=== PATIENT | female | born 1955 | race Caucasian/White ===

== ENCOUNTER 2016-05-19 19:38 | Inpatient (IN) | payer OTHER ==
[~2016-05-19] VITALS: Ht 162.6 cm; Wt 53.9 kg
[~2016-05-19 19:38] MED LIST: ALPR0.2552 PO; CALC-731 PO; CITA40TA PO; DULO60CA42 PO; EST05TD TOP; HYDR10TA12 PO; LANS30CA8 PO; LEVO50TA83 PO; ONDAN8ODT BU; VICODIN PO; [UNRECOGNIZED DRUG - CODE] PO; [UNRECOGNIZED DRUG - OTHER] INJ
[2016-05-19 19:51] VITALS: BP 91/55; PULSE 153; RESP 20; O2SAT 100
[2016-05-19] MEDS ORDERED: 0.9% Sodium Chloride 1,000 ML IV ONE ×2 (19:56→20:00)
--- NOTE | 2016-05-19 19:56 | ED.REPORT ---
HPI-Abd Pain F 40 and Over Date of Service May 19, 2016 ED Provider: Beny Thomas MD Pt is a 61 y.o. female with [place]'s disease who presents to the ED c/o rectal bleeding onset this morning. Pt also reports associated dizziness, nausea, hematemesis, hematochezia, and decreased PO intake. She states that she has been unable to keep her medications down. She reports having a colonoscopy 2 years ago. Nursing Notes Stated Complaint: BLOOD IN STOOL,VOMITING,DEHYDRATED Chief Complaint: Female Abdominal Pain Nursing Notes Reviewed: Yes Allergies: Coded Allergies: Penicillins (Verified Allergy, Unknown, 05/19/16) Sulfa (Sulfonamide Antibiotics) (Verified Allergy, Unknown, 05/19/16) pseudoephedrine (Verified Allergy, Unknown, 05/19/16) sulfamethoxazole (Verified Allergy, Unknown, 05/19/16) tramadol (Verified Allergy, Unknown, 05/19/16) trimethoprim (Verified Allergy, Unknown, 05/19/16) Uncoded Allergies: BACTRIM DS (Allergy, Mild, nausea, 02/01/13) SUDEFED (Allergy, Mild, nausea, 02/01/13) SULFA (Allergy, Mild, nausea, 02/01/13) Scheduled ([R-12 injection]) 1 ML INJ q 2 weeks Calcium Carb/Vit D3/Minerals (Calcium 600+D & Mineral Chw Tb) 1 Each Tab.chew 1 EACH PO QID Cholecalciferol-Expunged Drug, Do Not Renew! (Vitamin D3-Expunged Drug, Do Not Renew!) 10,000 Unit Capsule 5,000 UNIT PO DAILY Citalopram-Expunged Drug, Do Not Renew! (Citalopram-Expunged Drug, Do Not Renew! ) 40 Mg Tablet 40 MG PO DAILY Duloxetine-Expunged Drug, Do Not Renew! (Cymbalta-Expunged Drug, Do Not Renew!) 60 Mg Capsule.dr 60 MG PO DAILY Estradiol-Expunged Drug, Do Not Renew! (Climara-Expunged Drug, Do Not Renew!) 0.05 Mg Patch 1 PATCH TOP QW ROTATE APPLICATION SITES Estrogen replacement therapy 3 weeks ON 1 week OFF Hydrocortisone-Expunged Drug, Do Not Renew! (Hydrocortisone-Expunged Drug, Do Not Renew!) 10 Mg Tablet 20 MG PO AM Hydrocortisone-Expunged Drug, Do Not Renew! (Hydrocortisone-Expunged Drug, Do Not Renew!) 10 Mg Tablet 10 MG PO HS Lansoprazole-Expunged Drug, Do Not Renew! (Lansoprazole-Expunged Drug, Do Not Renew!) 30 Mg Capsule.dr 60 MG PO DAILYAC Levothyroxine-Expunged Drug, Do Not Renew! (Synthroid-Expunged Drug, Do Not Renew!) 50 Mcg Tablet 25 MCG PO DAILY Scheduled PRN ([Vicodin 5-500MG Tab]) 1 TAB PO Q8 PRN PRN Alprazolam-Expunged Drug, Do Not Renew! (Alprazolam-Expunged Drug, Do Not Renew! ) 0.25 Mg Tablet 0.25 MG PO DAILY PRN PRN For Anxiety Ondansetron (Ondansetron) 8 Mg Tab.rapdis 8 MG BU Q8 PRN PRN DISSOLVE IN MOUTH OR UNDER TONGUE General Time Seen by MD: 19:54 Chief Complaint Rectal bleeding Hx Obtained From: Patient Arrived By: Walk-in Sudden in Onset?: Yes Onset Occurred: 9 - 12 hours ago Symptom Duration: Since onset Past Medical History Past Medical History Sergio's disease Mitral valve prolapse Osteoporosis Restless leg syndrome Insomnia Reports: GERD, Hyperlipidemia Smoking History Never Smoker Ambulatory Status Independent Review of Systems Rectal bleeding Decreased PO intake GI: Reports: Diarrhea, Hematemesis, Hematochezia, Nausea, Vomiting, Denies: Constipation Complete sys rev & neg: except as marked. Neurologic: Reports: Dizziness Physical Exam Vital Signs Vital Signs (First) Date Time Temp Pulse Resp B/P Pulse Ox O2 Delivery O2 Flow Rate FiO2 05/19/16 19:51 36.8 153 20 91/55 100 Room Air Initial VS: Reviewed Head / Eyes: Atraumatic, Normocephalic Extremities: Vascular intact, Neuro intact Skin: Warm, Dry, No cyanosis Neurologic: Alert, Oriented, Nonfocal Psychiatric: Mood/affect normal, Behavior normal, Normal thought content General/Constitutional: Awake, Alert Appearance / Presentation: Positive: Pale Respiratory / Chest: Atraumatic, Breath sounds NL, Breath sounds = bilat, No respiratory distress, No rales, No rhonchi, No wheezing, No retractions, No stridor Cardiovascular: Heart sounds NL, No gallop, No murmurs, No rubs, Peripheral circulation NL Heart Rate / Rhythm: Positive: Tachycardia Abdomen: Atraumatic, Soft, Non-tender, No guarding, No rebound, No distention Back: Atraumatic Interpretation & Diagnostics Lab Results Interpretation Result Diagram: 05/19/16195405/19/161954 Test 05/19/16 19:55 05/19/16 22:08 05/19/16 23:14 White Blood Count 16.9th/mm3 (3.8-10.1) Red Blood Count 5.91mil/mm3 (3.90-5.20) Hemoglobin 16.7g/dL (12.0-15.6) Hematocrit 48.7% (35.0-46.0) Mean Corpuscular Volume 82.4fL (81-100) Mean Corpuscular Hemoglobin 28.3pg (27.0-35.0) Mean Corpuscular Hemoglobin Concent 34.3% (32.0-37.0) Red Cell Distribution Width 13.2% (12.3-15.4) Platelet Count 425bil/L (150-400) Neutrophils (%) (Auto) 63.1% (40-74) Lymphocytes (%) (Auto) 22.3% (14-46) Monocytes (%) (Auto) 12.2% (4-12) Eosinophils (%) (Auto) 1.7% (0-5) Basophils (%) (Auto) 0.3% (0-3) Prothrombin Time 10.7sec (8.1-12.5) Prothromb Time International Ratio 1.00ratio Sodium Level 130mEq/L (134-144) Potassium Level 4.7mEq/L (3.5-5.2) Chloride Level 90mEq/L (97-108) Carbon Dioxide Level 20mmol/L (18-29) Blood Urea Nitrogen 23mg/dL (8-27) Creatinine 1.61mg/dL (0.57-1.00) Estimat Glomerular Filtration Rate 47mL/min (>59) Glucose Level 121mg/dL (60-99) Lactic Acid Level 3.6mmol/L (0.4-2.0) Calcium Level 10.0mg/dL (8.5-10.1) Total Bilirubin 0.7mg/dL (0.0-1.2) Aspartate Amino Transf (AST/SGOT) 29U/L (0-50) Alanine Aminotransferase (ALT/SGPT) 15U/L (0-32) Alkaline Phosphatase 67U/L (25-165) Total Protein 7.5g/dL (6.4-8.4) Albumin 4.2g/dL (3.4-5.0) Urine Color Yellow (YELLOW) Urine Appearance Clear (CLEAR,HAZY) Urine pH 5.5 (5.0-8.0) Urine Specific Bryan 1.025 (1.003-1.035) Urine Protein Negativemg/dL (NEG,TRACE) Urine Glucose (UA) Negativemg/dL (NEGATIVE) Urine Ketones Tracemg/dL (NEGATIVE) Urine Occult Blood Trace (NEGATIVE) Urine Nitrite Negative (NEGATIVE) Urine Bilirubin Small (NEGATIVE) Urine Ictotest Negative (Negative) Urine Urobilinogen Normalmg/dL (NORMAL) Urine Leukocyte Esterase Negative (NEGATIVE) Urine RBC 3-10/hpf (0-2) Urine WBC 6-10/hpf (0-5) Urine Epithelial Cells Occasional/hpf (NONE-MOD) Urine Crystals None seen (NONE SEEN) Urine Bacteria Few/hpf (NONE-FEW) Urine Hyaline Casts None/lpf (NONE) Urine Granular Casts None seen (NONE SEEN) Urine Waxy Casts None seen (NONE SEEN) Urine Red Blood Cell Casts None seen (NONE SEEN) Urine White Blood Cell Casts None seen (NONE SEEN) Urine Mucus None seen (None Seen) Urine Trichomonas None seen (NONE SEEN) Urine Yeast None (NONE SEEN) Urinalysis Comment None Urine Culture Reflexed Indicated Urinalysis Interpretation Positive blood (Trace), Positive ketones ECG Interpretation ECG Interpretation: No ST changes Time: 19:59 Interpreted by: ED physician Normal ECG Interpretation: Normal sinus rhythm Rhythm / Conduction: Tachycardia (rate of 149) X-Ray Chest Interpretation Chest Xray Interpretation: IMPRESSION: Breast implants, peripherally faintly calcified, no acute disease. Dictated by: Skip Clement M.D. on 05/19/2016 at 21:08 Approved by: Skip Clement M.D. on 05/19/2016 at 21:08 Re-Eval/Medical Decision Med Decision/Clinical Course 61-year-old female history of [place]'s disease, fibromyalgia presenting with abdominal pain, hematemesis and bloody diarrhea started today. Abdomen is soft with no tenderness. Rectal with gross blood no melena. MAPs initially in the 40s. She Did Not Take Her hydrocortisone today due to vomiting. Tachycardic to 1 teens. Lactate is 3.6. Hb 16. Acute kidney injury creatinine 1.6 baseline 1. Urine positive leukocytes. Stool cultures sent. Discussed with hospitalist who would like CT abdomen and pelvis with oral contrast which is pending. Contrast started. Patient will be admitted to [facility] with diagnosis sepsis, UTI, diarrhea, GI bleed, acute kidney injury. Patient was given Rocephin and Flagyl for GI and urinary source. Given 3 L normal saline. Given hydrocortisone 100 mg IV. Her maps were in the mid 60s at transfer. 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 We will trend hemoglobin. Source of Hx: Old records Re-Evaluation/Progress : Time of Eval: 22:53 Re-Evaluation/Progress Note: Pt rechecked. Discussed lab results and plan for admission, pt undertsands and agrees with plan. Consultation : Referral / Consult Name: Manolo Razo MD Consulted With: Hospitalist Call Returned at: 23:23 Note: Discussed pt condition, accepts admit. Would like an abdominal CT w/ oral contrast. Counseled Regarding: Diagnosis, Lab results, Need for admission Discharge & Departure Primary Impression: Sepsis Additional Impressions: UTI (urinary tract infection) Acute kidney injury Diarrhea Disposition: ADMITTED TO HOSPITAL Discharge Condition All VS Reviewed: Yes Condition: Stable Referrals: Jessica Romero MD (PCP) Beatrice Attestation Portions of this note were transcribed by Diego Blackwood. I, Dr. Thomas personally performed the history, physical exam and medical decision-making; I reviewed and confirmed the accuracy of the information in the transcribed note. Signed by: Beatrice Morse, 05/19/16 and 0464. copies to: Jessica Romero MD, Ben M MD May 19, 2016 19:56 DIEGO BLACKWOOD May 19, 2016 22:39
[2016-05-19] MEDS ORDERED: Pantoprazole Inj 80 MG, Pharmacy To Mix 1 EA in 0.9% Sodium Chloride 80 ML IV ONE ×2 (20:00)
[2016-05-19] MEDS ORDERED: Pantoprazole 4 mg/mL 10 mL Inj IVPUSH ONE (20:00)
[2016-05-19] MEDS ORDERED: Hydrocortisone 50 mg/mL 2 mL Inj IVPUSH ONE (20:00)
[2016-05-19 20:17] LABS: BASOPHILS % (AUTO) 0.3 % (0-3); EOSINOPHILS % (AUTO) 1.7 % (0-5); MONOCYTES % (AUTO) 12.2 % (4-12); Mean Corpuscular Hemoglobin 28.3 pg (27.0-35.0); Mean Corpuscular Volume 82.4 fL (81-100); NEUTROPHILS % (AUTO) 63.1 % (40-74); Platelet Count 425 bil/L (150-400)
[2016-05-19] MEDS ORDERED: Ondansetron 2 mg/mL 2 mL Inj IVPUSH PRN ×2 (20:20→23:50)
[2016-05-19 20:30] VITALS: BP 100/60; PULSE 122; RESP 20; O2SAT 98
--- NOTE | 2016-05-19 21:09 | DRSVH ---
PROCEDURE: X-RAY CHEST ONE VIEW, PORTABLE ([id number]) INDICATIONS: GI bleed TECHNIQUE: One view of the chest was acquired. COMPARISON: [facility], CR, RIBS UNILAT 2VW (RT), 08/28/2014, 15:22. FINDINGS: Surgical changes and devices: None. Lungs and pleura: No pleural effusions or pneumothorax. Lungs are clear. Mediastinum: Mediastinal contours appear normal. Heart size is normal. Bones and chest wall: No suspicious bony lesions. Overlying soft tissues appear unremarkable. IMPRESSION: Breast implants, peripherally faintly calcified, no acute disease. Dictated by: Skip Clement M.D. on 05/19/2016 at 21:08 Approved by: Skip Clement M.D. on 05/19/2016 at 21:08
[2016-05-19 21:30] VITALS: BP 88/51; PULSE 123; RESP 18; O2SAT 96
[2016-05-19 22:00] VITALS: BP 81/52; PULSE 117; RESP 18; O2SAT 97
[2016-05-19 22:17] LABS: APPEARANCE,URINE CLEAR (CLEAR,HAZY); COLOR,URINE YELLOW (YELLOW); OCCULT BLOOD,URINE TRACE (NEGATIVE); PH,URINE 5.5 (5.0-8.0); UROBILINOGEN,URINE NORMAL (NORMAL)
[2016-05-19 22:30] LABS: ICTOTEST,URINE NEGATIVE (Negative)
[2016-05-19] MEDS ORDERED: metroNIDAZOLE Inj 500 MG in IV Premix 1 EACH IV ONE (22:55)
[2016-05-19] MEDS ORDERED: cefTRIAXone Inj 2 GM in IV Premix 1 EACH IV ONE (22:55)
[2016-05-19] MEDS ORDERED: cefTRIAXone Inj 2,000 MG in Dextrose 5% Minibag Plus 50 ML IV SCH (23:05)
[2016-05-19] MEDS ORDERED: Iohexol 300 mg/mL 30 mL Inj PO ONE (23:25)
[2016-05-19] MEDS ORDERED: CEFTRIAXONE 2000 MG/50 ML IV ONE (23:30)
[2016-05-19] MEDS ORDERED: [UNRECOGNIZED DRUG - OTHER] IV ONE (23:30)
[2016-05-19] MEDS ORDERED: Alum-Mag Hydrox-Simeth 30 mL Suspension PO PRN (23:50)
[2016-05-19 23:54] VITALS: BP 86/60; PULSE 102; RESP 16; O2SAT 100
[2016-05-20] VITALS (9 sets, daily range): BP systolic 80–98; BP diastolic 40–63; PULSE 89–110; RESP 12–25; O2SAT 96–100
[2016-05-20] MEDS ORDERED: Polyethylene Glycol (PEG) 17 Gm Powder PO PRN
[2016-05-20] MEDS: 0.9% Sodium Chloride 1,000 ML IV SCH ×2 (00:41→13:51)
[2016-05-20] MEDS ORDERED: HYDROmorphone 0.5 mg/0.5 mL iSecure Syringe IVPUSH PRN (00:50)
--- NOTE | 2016-05-20 01:00 | NUR ---
Admit note and blood pressures. Patient came to the [facility] on a gurney escorted by an diesel technician. Patient was settled into bed and admission process was completed. Patient is A/Ox4 and answering all questions appropriately. Patient was placed on tele and found to be tachycardiac in the 110's. Patient was slightly hypotensive in the 90's systolic. Patient reports mild lightheadedness. Provider Royer was contact and orders to give a 500ml fluid bolus was received. Maintenance fluids running at 75ml/hr. Patient blood pressure remained in the 90's and the patient is asystematic.
--- NOTE | 2016-05-20 01:09 | PCM.HPMED ---
Subjective Date of Service May 20, 2016 Primary Provider: Admitting Physician: Maonlo Razo MD Primary Care Physician: Jessica Romero MD Attending Physician: Manolo Razo MD Chief Complaint: Abdominal pain, bloody diarrhea History of Present Illness: Patient is a 61 year old female with a history of [place]'s disease, fibromyalgia, GERD and colon polyps. She presented to [facility] on 05/19/16 with "horrible" abdominal pain. It had been ongoing since 0300. She awakened at that time and went to use the restroom. She initially passed hard stool and then bloody diarrhea followed. She reports bright red blood and that continued much of the day (last BM 1600). Later in the morning she also developed dry heaves and vomiting. The emesis did contain blood in the afternoon with her last episode occurring in the ED waiting room. Currently her nausea has resolved but her abdominal pain remains. She denies fever but did have chills. She has not been feeling unwell the past few days and denies cough, nasal congestion, sore throat. She denies chest pain, SOB, dysuria, hematuria. She has not eaten since the evening of the . She has had an episode to bloody diarrhea in the past. It was much less volume than this instance. Her last colonoscopy was 2-[address] Fuchs. She has a history of colon polyps and repeats her colonoscopy about every three years. In the ED the patient was afebrile with a heart rate of 153, respiratory rate of 20, blood pressure 91/55, and O2 saturation of 100% on room air. Labs we remarkable for WBC 16.9, Hgb 16.7, sodium 130, creatinine 1.61, lactic acid 3.6. Patient given IV fluids, stress dosing of hydrocortisone and is awaiting CT abdomen/pelvis with oral contrast. Patient will be admitted for further evaluation and management of the GI bleeding. Review of Systems: A comprehensive review of systems was conducted with the patient and found to be negative except as above in the history of present illness. Allergies Coded Allergies: Penicillins (Verified Allergy, Unknown, 05/19/16) Sulfa (Sulfonamide Antibiotics) (Verified Allergy, Unknown, 05/19/16) pseudoephedrine (Verified Allergy, Unknown, 05/19/16) sulfamethoxazole (Verified Allergy, Unknown, 05/19/16) tramadol (Verified Allergy, Unknown, 05/19/16) trimethoprim (Verified Allergy, Unknown, 05/19/16) Uncoded Allergies: BACTRIM DS (Allergy, Mild, nausea, 02/01/13) SUDEFED (Allergy, Mild, nausea, 02/01/13) SULFA (Allergy, Mild, nausea, 02/01/13) Home Medications Per [facility]: Alprazolam 0.25 mg once a day as needed Cymbalta 60 mg every day Hydrocortisone 10 mg tablet take 2 tablet orally every morning, half a tablet at noon and half a tablet at around 4-5 PM Lansoprazole 60 MG daily Mirapex Oral Tablet 0.125 MG - take 3-4 tablets HS Oxycodone 5 mg take 1/2 tablet by oral route every 4-6 hours as needed Pravastatin 80 mg every day Zofran Oral Tablet 8 MG TID PRN nausea PMH Sergio's disease Fibromyalgia GERD Compression fracture of the spine History of colon polyps Surgical History Jaw surgery Breast implants Dental surgery Family History No known family history of colon cancer, GI bleeding Social History Hx Alcohol Use: No Hx Substance Use: No Hx Tobacco Use: No Smoking Status: Never Smoker Exam Vital Signs Vital Sign - Last Date Time Temp Pulse Resp B/P Pulse Ox O2 Delivery O2 Flow Rate FiO2 05/19/16 23:54 102 16 86/60 100 Room Air 05/19/16 19:51 36.8 Intake and Output 05/19/16 05/19/16 05/20/16 Cumulative From/Thru 15:00 23:00 07:00 05/19/16 19:51 - 05/19/16 22:20 Intake Total 3000 ml 3000 ml Balance 3000 ml 3000 ml Intake IV Total 3000 ml 3000 ml Exam Alert and oriented x3, no acute distress Head atraumatic, normocephalic PERRLA, EOMI, sclera anicteric Mucus membranes dry, no oral thrush observed No cervical lymphadenopathy, neck supple, nontender No JVD noted Cardiac tones regular rate and rhythm with no murmur appreciated Lungs clear to auscultation bilaterally with adequate respiratory effort RLQ abdominal tenderness, non-distended, hyperactive bowel tones, soft Gonzalez absent Radial pulses normal and equivalent bilaterally, dorsalis pedis pulses normal and equivalent bilaterally No cyanosis, clubbing or edema No ulcerations/open wounds Cranial nerves appear to be fully intact, normal speech, patient can move upper and lower limbs grossly Lab and Diagnostics Result Diagram: 05/19/16195405/19/161954 X-Rays, CTs and MRIs Chest x-ray: IMPRESSION: Breast implants, peripherally faintly calcified, no acute disease. Dictated by: Skip Clement M.D. on 05/19/2016 at 21:08 12-lead ECG Rate 149 QTc 491 Sinus tachycardia Assessment & Plan Patient is a 61 year old female with a history of Sergio's disease, fibromyalgia, GERD and colon polyps. She presented to [facility] on 05/19/16 with "horrible" abdominal pain and bloody diarrhea. Awaiting CT abd/pelvis for further evaluation of lower GI bleeding. Patient admitted for management. 1. Lower GI bleeding, acute, present on admission. - Bloody diarrhea appears to have ceased at this time. Patient stable. - Patient also reported bloody emesis so possible upper GI bleed as well. - CT abd/pelvis ordered and pending. With elevated lactate, concern for ischemic /infarcted bowel. - IV fluids NS 75 ml/hr. - Protonix 40 mg IV BID begun. - Trend H&H. - Will defer to day team to call for GI consultation as patient's H&H was initially elevated. 2. Severe sepsis, acute, present on admission. - Criteria met: leukocytosis 16.9, tachycardia (153). Possible GI, urinary source. Lactic acid 3.6. - Awaiting CT abd/pelvis for additional information. - Rocephin and Flagyl started in ED. Will continue this regimen at this time. - Trending lactic acid until normalizes. - IV NS 75/hr. - Urine and blood cultures ordered and pending. 3. Acute kidney injury, present on admission. - Likely secondary to volume depletion related to diarrhea and vomiting. - Baseline creatinine appears to be around 1.0. - 3L IV fluids given so far. Continue IV NS 75 ml/hr. - Monitor with BMP. 4. Cordova's disease, chronic, presume stable. - Stress dose of hydrocortisone given in ED. - Continue hydrocortisone 20 mg QAM, 10 mg noon. 5. Hypotension, acute, present on admission. - Patient's baseline SBP 110's. - 3L given in ED. IV NS 75 ml/hr. - Stress dosing of hydrocortisone given. Could consider additional stress dosing tomorrow AM if fluid resuscitation not sufficient. - Continue to monitor closely. 6. Chronic pain syndrome, presume stable. - Fibromyalgia, spinal compression fracture. - Holding PO meds including oxycodone. - Dilaudid 0.5 mg IV available Q4 PRN. 7. Anxiety/Depression, chronic, presume stable. - Patient takes Xanax HS PRN. Will have Ativan 0.5 mg IV available if needed. - Continue Cymbalta 60 mg daily. 8. Hyperlipidemia, chronic, presume stable. - Continue pravastatin 80 mg HS when patient tolerating PO intake. - Antiemetic available PRN. - Bowel regimen available PRN. - Antacid available PRN. - Tylenol available PRN mild pain, fever. Patient admitted under inpatient status with expected length of stay greater than 2 midnights for severity of present symptoms, complexities of treatment plan and risk for adverse events. PCP Holden Romero MD GI Prophylaxis: Proton Pump Inhibitor VTE Prophylaxis Indicated: Contraindicated (Lower GI bleeding) VTE Prophylaxis: SCDs Resuscitation Status: DNR/DNI:Do Not Resuscitate/Intubate (discussed with patient; has Advanced directive at home) Attending Statement The patient was seen and examined together with Dr. Linton on 05/19 and I agree with the history, exam and plan as outlined in the note above. copies to: Jessica Romero MD, Jennifer E DO May 20, 2016 00:27 Manolo Razo MD May 20, 2016 01:40
[2016-05-20] MEDS: MetoCLOpramide 5 mg/mL 2 mL Inj IVPUSH PRN (02:10)
[2016-05-20] MEDS: metroNIDAZOLE Inj 500 MG in IV Premix 1 EACH IV SCH ×2 (02:13→08:09)
[2016-05-20 05:22] LABS: BASOPHILS % (AUTO) 0.1 % (0-3); EOSINOPHILS % (AUTO) 0 % (0-5); MONOCYTES % (AUTO) 4.8 % (4-12); Mean Corpuscular Hemoglobin 28.5 pg (27.0-35.0); Mean Corpuscular Volume 84.6 fL (81-100); NEUTROPHILS % (AUTO) 85.7 % (40-74); Platelet Count 267 bil/L (150-400)
[2016-05-20 05:47] LABS: Magnesium 1.6 mg/dL (1.6-2.6); Phosphorus 4.6 mg/dL (2.5-4.9)
[2016-05-20] MEDS ORDERED: Hydrocortisone 50 mg/mL 2 mL Inj IVPUSH ONE (06:15)
--- NOTE | 2016-05-20 06:34 | NUR ---
Blood pressure. Patient's blood pressure has trended to 80/40 taken manually. Patient is asystematic and reports she feels her strength returning. Doctor Royer was informed and orders to give steroids were received. Medications administered and blood pressure monitored closely. Patient remains asystematic.
[2016-05-20] MEDS: Pantoprazole 4 mg/mL 10 mL Inj IVPUSH SCH ×2 (08:00→16:19)
[2016-05-20] MEDS: DULoxetine 30 mg DR Capsule PO SCH (08:00)
[2016-05-20] MEDS ORDERED: cefTRIAXone Inj 2,000 MG in Dextrose 5% Minibag Plus 50 ML IV SCH (08:30)
[2016-05-20] MEDS ORDERED: Hydrocortisone 10 mg Tablet PO SCH ×2 (08:30→12:00)
--- NOTE | 2016-05-20 08:42 | DRSVH ---
PROCEDURE: CT ABDOMEN AND PELVIS WITH CONTRAST ([id number]) INDICATIONS: Abd pain diarrhea with blood TECHNIQUE: After the administration of oral and intravenous contrast, 5 mm thick sections acquired from the diap hragms to the symphysis. 5 mm thick coronal and sagittal reformats were performed. For radiation do se reduction, the following was used: automated exposure control, adjustment of mA and/or kV accordi ng to patient size. COMPARISON: [facility], CT, CT ABD PELVIS W CON, 07/05/2015, 13:43. FINDINGS: Image quality: Excellent. ABDOMEN: Lung bases: Lung bases are clear. Heart size is normal. Solid organs: Liver and spleen are normal in size. Multiple low attenuation hepatic cysts are presen t. Gallbladder is unremarkable. Biliary system is non-dilated. Pancreas enhances normally. No adr enal nodules. Kidneys are normal in size and enhancement, without hydronephrosis. Peritoneum and bowel: Stomach, small bowel, and colon loops are nonobstructed. There is a diffuse ap pearance of significant colonic thickening most severe in the distal transverse colon through the rec albert. Less prominent appearance is also noted within the proximal transverse and right colon. Mild manny earance of scattered diverticula are present. There is no free fluid or free air. Nodes and vessels: No retroperitoneal or mesenteric adenopathy. Aorta and inferior vena cava are no rmal in caliber. Miscellaneous: Mild appearance of distal esophageal thickening and mild hiatal hernia. PELVIS: Genitourinary: Bladder wall thickness is normal. Miscellaneous: No inguinal hernias or adenopathy. Bones: No suspicious bony lesions. No vertebral body compression fractures. IMPRESSION: 1. Significant appearance of colonic thickening as above with minimal scattered diverticula. Given di ffuse appearance finding is most suspected to be related to colitis secondary to ischemia, infection or inflammation. Although diverticula are present, overall appearance does not appear consistent with diverticulitis. 2. Multiple hepatic cysts. 3. Prominent distal esophageal thickening a hiatal hernia. The former could be related to esophagitis and clinical correlation is recommended. Dictated by: Tana Montaño M.D. on 05/20/2016 at 8:37 Approved by: Tana Montaño M.D. on 05/20/2016 at 8:40
--- NOTE | 2016-05-20 09:01 | NUR ---
Social Work Note: Screen Note Data& Assessment: EMR reviewed. Nichole Diggs is a 61 year old female admitted on 05/19/2016 for sepsis, diarrhea, UTI, acute kidney injury. Pt has [employer] out of state insurance coverage and sees Jessica Romero MD for primary care. Pt lives in [place] with her spouse and is independent at baseline. No discharge needs identified at this time. SW to continue to follow if any needs arise. Plan: Anticipated discharge home via POV when medically ready. No discharge needs identified at this time. SW to continue to follow if any needs arise. [facility] [place]
--- NOTE | 2016-05-20 13:43 | PCM.PNMED ---
Subjective Date of Service May 20, 2016 Subjective Patient is a 61 year old female with a history of Lares's disease, fibromyalgia, GERD and colon polyps. She presented to [facility] on 05/19/16 with "horrible" abdominal pain and bloody diarrhea. Admitted for sepsis and possible upper and lower GI bleed. Hospital day 1. Overnight: Patient received fluid resuscitation with appropriate response. Stable throughout the night. Today: Patient sitting up in bed. States she has had one additional episode of bloody diarrhea and one more formed stool that did not appear blood. Denies any hematemesis since admission. Endorses diffuse mild abdominal pain and nausea. Denies chest pain, palpitations, shortness of breath, dysuria, or light headedness. Remaining review of systems negative. Exam Vital Signs Vital Sign - Last Date Time Temp Pulse Resp B/P Pulse Ox O2 Delivery O2 Flow Rate FiO2 05/20/16 06:00 90 12 80/40 96 Room Air 05/20/16 03:18 36.5 Intake and Output 05/19/16 05/19/16 05/20/16 Cumulative From/Thru 15:00 23:00 07:00 05/19/16 19:51 - 05/20/16 06:44 Intake Total 3000 ml 1010 ml 4010 ml Output Total 650 ml 650 ml Balance 3000 ml 360 ml 3360 ml Intake Oral 0 ml 0 ml IV Total 3000 ml 1010 ml 4010 ml Output Urine Total 650 ml 650 ml # Bowel Movements 2 2 Exam General: No acute distress, well-developed, well-nourished, appropriately interactive. HEENT: Normocephalic, atraumatic. External ears without defect. Pupils equal, round, and reactive to light and accommodation. Anicteric sclerae, moist conjunctivae, and no lid lag. Dry mucus membranes. Neck: Supple with full range of motion. No jugular venous distension. No bruits. No lymphadenopathy or thyromegaly. Cardiovascular: Regular rate and rhythm with no murmurs, rubs, or gallops appreciated Pulmonary: Clear to auscultation bilaterally with no crackles, wheezes, or rhonchi. Normal respiratory effort with no use of accessory muscles. Abdomen: Bowel tones present. Soft, diffusely tender to palpation, nondistended. No hepatosplenomegaly or masses appreciated. Extremities: No clubbing, cyanosis, edema, or lymphadenopathy appreciated. Skin: Normal temperature, turgor, and texture; no rash, ulcers, or subcutaneous nodules appreciated. Neurological: Cranial nerves grossly intact. Normal muscle strength, tone, and bulk. Reflexes, coordination, and sensory function within normal limits. No known gait impairment. Psychiatric: Normal mood and affect. Alert and oriented to person, place, and time. IVs and Medications Medications Reviewed: Medications were reviewed in detail Lab and Diagnostics Lactic acid 1.6 Result Diagram: 05/20/1651405/20/1615 X-Rays, CTs and MRIs CT ABDOMEN AND PELVIS WITH CONTRAST IMPRESSION: 1. Significant appearance of colonic thickening as above with minimal scattered diverticula. Given diffuse appearance finding is most suspected to be related to colitis secondary to ischemia, infection or inflammation. Although diverticula are present, overall appearance does not appear consistent with diverticulitis. 2. Multiple hepatic cysts. 3. Prominent distal esophageal thickening a hiatal hernia. The former could be related to esophagitis and clinical correlation is recommended. Dictated by: Tana Montaño M.D. on 05/20/2016 at 8:37 Approved by: Tana Montaño M.D. on 05/20/2016 at 8:40 X-RAY CHEST ONE VIEW, PORTABLE IMPRESSION: Breast implants, peripherally faintly calcified, no acute disease. Dictated by: Skip Clement M.D. on 05/19/2016 at 21:08 Approved by: Skip Clement M.D. on 05/19/2016 at 21:08 12-lead ECG Rate 149 QTc 491 Sinus tachycardia Assessment & Plan Patient is a 61 year old female with a history of Lares's disease, fibromyalgia, GERD and colon polyps. She presented to [facility] on 05/19/16 with "horrible" abdominal pain and bloody diarrhea. Admitted for sepsis and possible upper and lower GI bleed. Hospital day 1. 1. Lower GI bleeding, present on admission. Active. - 1 episode of bloody diarrhea since admission. Patient stable. - CT abd/pelvis ordered revealed colonic thickening with minimal scattered diverticula but appearance is not consistent with diverticulitis. - Lactic acid initially elevated concerning for ischemic/infarcted bowel. Lactic acid currently 1.6. - IV fluids NS 75 ml/hr. - Protonix 40 mg IV BID begun. - Trend H&H. - GI consulted. Appreciate time and expertise. 2. Possible upper GI bleeding, present on admission. Active. - Patient reported one episode of bloody emesis at home. No recurrent episodes since admission. - CT abdomen/pelvis revealed thickening of the esophagus and hiatal hernia. - GI consulted. Appreciate time and expertise. 3. Severe sepsis, present on admission. Resolved. - Criteria met on admission: leukocytosis 16.9, tachycardia (153). Possible GI , urinary source. Lactic acid 3.6. - With fluid resuscitation patient quickly stabilized and no longer appear septic or meets criteria. - Rocephin and Flagyl started in ED. Will continue this regimen at this time until further recommendations from GI and lab results. - Lactic acid normalized. - IV NS 75/hr. - Urine and blood cultures ordered and pending. 4. Acute kidney injury, present on admission. Active. - Likely secondary to volume depletion related to diarrhea and vomiting. - On admission BUN and creatinine 23 and 1.61. - Baseline creatinine appears to be around 1.0. - 3L IV fluids initially bolused. Continued at IV NS 75 ml/hr. - BUN and creatinine improved at 16 and 1.10. - Monitor with BMP. 5. 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 - Stress dose of hydrocortisone 100 mg IV given in ED. - Continue hydrocortisone 20 mg QAM, 10 mg noon. 6. Hypotension, present on admission. Resolved. - Patient's baseline SBP 90s to 110's. - 3L given in ED. IV NS 75 ml/hr. - Stress dosing of hydrocortisone given as above. - Continue to monitor closely. 7. Chronic pain syndrome, present on admission. Chronic, presumed stable. - Fibromyalgia, spinal compression fracture. - Holding PO meds including oxycodone. - Dilaudid 0.5 mg IV available Q4 PRN. 8. Anxiety/Depression, chronic, presume stable. - Patient takes Xanax HS PRN. Will have Ativan 0.5 mg IV available if needed. - Continue Cymbalta 60 mg daily. 9. Hyperlipidemia, chronic, presume stable. - Continue Pravastatin 80 mg HS when patient tolerating PO intake. - Antiemetic available PRN. - Bowel regimen available PRN. - Antacid available PRN. - Tylenol available PRN mild pain, fever. Disposition: Patient currently undergoing further GI workup. Discharge pending workup and treatment plan. Discharge likely home with no needs. PCP Holden Romero MD Pain Evaluation: Adequate Pain Control GI Prophylaxis: Proton Pump Inhibitor VTE Prophylaxis: SCDs VTE Mechanical Devices: Intermittant Pneumatic CD Resuscitation Status: DNR/DNI:Do Not Resuscitate/Intubate (discussed with patient; has Advanced directive at home) Attending Statement The patient was seen and examined together with Dr. Contreras on 05/20/2016 and I agree with the history, exam and plan as outlined in the note above. . JHONNY CONTRERAS DO May 20, 2016 07:00 Jay Rosario MD May 24, 2016 14:30
--- NOTE | 2016-05-20 14:33 | PCM.CHPMED ---
Subjective Date of Service: May 20, 2016 Provider requesting consult: JHONNY CONTRERAS DO Primary Physician: Admitting Physician: Manolo Rzao MD Primary Care Physician: Jessica Romero MD Attending Physician: Manolo Razo MD Chief Complaint: Chief Complaint: Abdominal pain, bloody diarrhea History of Present Illness: Patient is a 61 year old female with a history of [place]'s disease, fibromyalgia, GERD and colon polyps. She presented to [facility] on 05/19/16 with "horrible" abdominal pain. It had been ongoing since 0300. She awakened at that time and went to use the restroom. She initially passed hard stool and then bloody diarrhea followed. She reports bright red blood and that continued much of the day (last BM 1600). Later in the morning she also developed dry heaves and vomiting. The emesis did contain blood in the afternoon with her last episode occurring in the ED waiting room. Currently her nausea has resolved but her abdominal pain remains. She denies fever but did have chills. She has not been feeling unwell the past few days and denies cough, nasal congestion, sore throat. She denies chest pain, SOB, dysuria, hematuria. She has not eaten since the evening of the . Today she reports chills and improving abdominal pain, now 5/10 down from 8. She describes her pain as suprapubic or RLQ. She reports nausea but no more diarrhea, vomiting, hematemesis, or hematochezia. She has had an episode to bloody diarrhea in the past. It was much less volume than this instance. Her last colonoscopy was 2-[address] Fuchs. She has a history of colon polyps and repeats her colonoscopy about every three years. She does not take Tylenol and rarely uses NSAIDs. No family history of colon cancer, Crohn's, UC, or celiac disease. In the ED the patient was afebrile with a heart rate of 153, respiratory rate of 20, blood pressure 91/55, and O2 saturation of 100% on room air. Labs we remarkable for WBC 16.9, Hgb 16.7, sodium 130, creatinine 1.61, lactic acid 3.6. CT abdomen/pelvis showed diffuse appearance of significant colonic thickening most severe in the distal transverse colon through the rectum, with prominent distal esophageal thickening and hiatal hernia Review of Systems: Comprehensive review of systems conducted and was negative except for the pertinent positives listed above. PMH Past Medical History Sergio's disease Fibromyalgia GERD Compression fracture of the spine History of colon polyps Surgical History Jaw surgery Breast implants Dental surgery Allergies: Coded Allergies: Penicillins (Verified Allergy, Unknown, 05/19/16) Sulfa (Sulfonamide Antibiotics) (Verified Allergy, Unknown, 05/19/16) pseudoephedrine (Verified Allergy, Unknown, 05/19/16) sulfamethoxazole (Verified Allergy, Unknown, 05/19/16) tramadol (Verified Allergy, Unknown, 05/19/16) trimethoprim (Verified Allergy, Unknown, 05/19/16) Uncoded Allergies: BACTRIM DS (Allergy, Mild, nausea, 02/01/13) SUDEFED (Allergy, Mild, nausea, 02/01/13) SULFA (Allergy, Mild, nausea, 02/01/13) Social History Hx Alcohol Use: NoHx Substance Use: NoHx Tobacco Use: No Smoking Status: Never Smoker Exam Vital Signs Vital Sign - Last Date Time Temp Pulse Resp B/P Pulse Ox O2 Delivery O2 Flow Rate FiO2 05/20/16 07:51 37.0 89 15 86/52 100 Room Air Intake and Output 05/19/16 05/19/16 05/20/16 Cumulative From/Thru 15:00 23:00 07:00 05/19/16 19:51 - 05/20/16 06:44 Intake Total 3000 ml 1010 ml 4010 ml Output Total 650 ml 650 ml Balance 3000 ml 360 ml 3360 ml Intake Oral 0 ml 0 ml IV Total 3000 ml 1010 ml 4010 ml Output Urine Total 650 ml 650 ml # Bowel Movements 2 2 Additional Information: General: Alert, Oriented X3, Cooperative, No Acute Distress Head: Normocephalic, atraumatic. External ears normal. Eyes: PERRLA, EOMI. Anicteric sclerae. Mouth: Mouth Normal, Mucous Membranes Moist/[place] Neck: Neck supple with full range of motion. Chest & Lungs: Clear to auscultation bilaterally with no crackles, wheezes, or rhonchi. Cardiovascular: Regular Rate/Rhythm, Normal S1, Normal S2, No Murmurs/Rubs/ Gallops Abdomen: Mild suprapubic tenderness, Non-distended, No masses, Normoactive bowel tones, Soft Musculoskeletal: Normal Range of Motion Extremities: No cyanosis/clubbing/edema bilaterally Neurological: Grossly Neurologically Intact, Normal Speech Lab and Diagnostics Result Diagram: 05/20/1615 05/20/1615 Assessment & Plan Assessment Patient is a 61 year old female with a history of [place]'s disease, fibromyalgia, GERD and colon polyps. She presented to [facility] on 05/19/16 with "horrible" abdominal pain and bloody diarrhea. Acute GI bleed - Pt presents with hematemesis, bloody diarrhea, and severe abdominal pain. CT abdomen/pelvis showed diffuse appearance of significant colonic thickening most severe in the distal transverse colon through the rectum, with prominent distal esophageal thickening and hiatal hernia. She may be having an upper or lower bleed at this time and will require upper and lower endoscopy. She has a history of GERD and hiatal hernia, so upper bleed is possible. Her CT was suspicious for colitis; could be infectious, inflammatory, or ischemic. Lactic acid was elevated but returned to normal overnight, and her abdominal pain has improved so this is less likely. A combination of upper and lower GI inflammation could be a sign of undiagnosed Crohn's disease. Bloody diarrhea and hematemesis appears to have ceased at this time. Patient stable. - Recommend stool PCR - IV fluids - Protonix 40 mg IV BID - Trend H&H. - Will schedule upper and lower endoscopy Addendum. I have seen and examined the patient. She does not need EGD and colonoscopy. She stated that she is not sure she saw blood in her vomitus. She was dry heaving. She has no nause and vomiting now. Her stool came back positive for C dif. She is already on flagyl. In 48 hours, recommend repeating C dif, if positive then reconsult. If neg then finish the coarse of abx. 1 weeks after finishing the antibiotics, start probiotics - Scacromyces. Problems: GI Prophylaxis: Proton Pump Inhibitor VTE Prophylaxis Indicated: Contraindicated (Lower GI bleeding) VTE Prophylaxis: SCDs VTE Mechanical Devices: Intermittant Pneumatic CD Resuscitation Status: DNR/DNI:Do Not Resuscitate/Intubate (discussed with patient; has Advanced directive at home) Dao Bazan May 20, 2016 12:18 Brady Rubi MD May 20, 2016 14:33
--- NOTE | 2016-05-20 17:58 | NUR ---
C-diff/BP/IVF Pt continues to have frequent diarrhea, stool PCR ordered/collected/sent, result came back as positive for C-diff, Pt placed in enteric precautions, MD notified, IV abx changed to PO flagyl and diet advanced to general. Pt's BPs remain in the 90s-100s/40s-50s, Pt denies dizziness. Pt now asymptomatic with BPs and taking PO fluids well. Pt also complained of starting to feel puffy in hands/wrists. MD notified and IVF D/C'd, Pt continued to deny dizziness for remainder of shift.
[2016-05-21 00:27] VITALS: BP 99/54; PULSE 96; RESP 19; O2SAT 99
--- NOTE | 2016-05-21 01:36 | NUR ---
pain pt c/o generalized back pain, pt not wanting IV dilaudid, pt takes PO oxy and or vicodin at home, called MD received order for PO oxy 5mg gave, helped pts pain and she is able to get comfortable and fall asleep Addendum: 05/21/16 at 0423 by DANIS ROSAS RN itching pt stating the oxy makes her itch requesting PO benadryl, called and received order for OT dose of 25mg benadryl
[2016-05-21 03:00] LABS: BASOPHILS % (AUTO) 0.1 % (0-3); EOSINOPHILS % (AUTO) 2.2 % (0-5); MONOCYTES % (AUTO) 9.5 % (4-12); Mean Corpuscular Hemoglobin 28.4 pg (27.0-35.0); Mean Corpuscular Volume 85.7 fL (81-100); Platelet Count 231 bil/L (150-400)
[2016-05-21] MEDS ORDERED: Potassium Chloride 20 mEq SR Tablet PO ONE (03:30)
[2016-05-21 03:39] VITALS: BP 91/48; PULSE 98; RESP 20; O2SAT 98
[2016-05-21] MEDS ORDERED: diphenhydrAMINE 25 mg Capsule PO ONE (04:15)
--- NOTE | 2016-05-21 04:24 | NUR ---
potassium 3.6 pts potassium 3.6 this morning, gave pt 20mEq PO potassium with pudding
[2016-05-21 07:47] VITALS: BP 106/65; PULSE 85; RESP 16; O2SAT 98
[2016-05-21] MEDS: Pantoprazole 4 mg/mL 10 mL Inj IVPUSH SCH (07:50)
[2016-05-21] MEDS: MetoCLOpramide 5 mg/mL 2 mL Inj IVPUSH PRN (07:51)
[2016-05-21] MEDS: DULoxetine 30 mg DR Capsule PO SCH (07:52)
[2016-05-21] MEDS ORDERED: Hydrocortisone 50 mg/mL 2 mL Inj IVPUSH ONE (08:30)
[2016-05-21] MEDS ORDERED: Hydrocortisone 10 mg Tablet PO SCH ×2 (08:30→12:00)
[2016-05-21] MEDS ORDERED: METR500T PO ×2 (08:58→09:24)
--- NOTE | 2016-05-21 09:53 | PCM.DIMED ---
JHONNY CONTRERAS DO 05/21/16 0900: Discharge Instructions Date of Service May 21, 2016 Dates of Hospitalization May 19, 2016 at 23:55 Discharge Diagnosis Discharge Diagnosis 1. Clostridium difficile, present on admission. Under treatment. 2. Possible GI bleeding, present on admission. Ruled out. 3. Severe sepsis, present on admission. Resolved. 4. Acute kidney injury, present on admission. Resolved. 5. [place]'s disease, present on admission. Chronic, presumed stable. 6. Hypotension, present on admission. Resolved. 7. Chronic pain syndrome, present on admission. Chronic, presumed stable. 8. Anxiety/Depression, chronic, presume stable. 9. Hyperlipidemia, chronic, presume stable. Medication Instructions During your hospitalization no changes to your home medication regimen were made. We did add an antibiotic called metronidazole (Flagyl) 500 mg every 8 hours for 14 days. Please continue taking this medication for an additional 13 days. It is important that you complete this course as the recurrence rate of clostridium difficile infection is high. Diet No restrictions (Recommend sauerkraut) Activity No restrictions Call your provider Fever or Chills, Bleeding, Vomitting, Excessive diarrhea Patient Instructions - During your hospitalization you were found to have an infection causing diarrhea called clostridium difficile. Antibiotics were started to treat this infection and need to be continued when you discharge to complete a 14 day course. - Recommend adding or increasing sauerkraut in your diet to help enhance normal gut bethany. - You may want to avoid dairy products as you can be mores sensitive to these after infection. - Please follow up with your primary care provider in 1 week. - Please follow up with GI, Dr. Rubi, in 4 weeks at this time you can discuss need for screening colonoscopy. Follow-up Provider: Jessica Romero MD Follow-up with PCP in: 1 week Provider: Brady Rubi MD Follow-up in: 4 weeks Jay Rosario MD 05/24/16 1429: Discharge Instructions Attending's Statement The patient was seen and examined together with Dr. Contreras on 05/21/2016 and I agree with the history, exam and plan as outlined in the note above. . JHONNY CONTRERAS DO May 21, 2016 09:00 Jay Rosario MD May 24, 2016 14:29
--- NOTE | 2016-05-21 10:09 | PCM.DC.MED ---
Discharge Summary Date of Service May 21, 2016 Dates of Hospitalization Date of Hospital Admission May 19, 2016 at 23:55 Date of Discharge: May 21, 2016 Providers: Admitting Physician: Manolo Razo MD Primary Care Physician: Jessica Romero MD Attending Physician: Manolo Razo MD Diagnosis at Time of Discharge Diagnosis at Time of Discharge 1. Clostridium difficile, present on admission. Under treatment. 2. Possible GI bleeding, present on admission. Ruled out. 3. Severe sepsis, present on admission. Resolved. 4. Acute kidney injury, present on admission. Resolved. 5. [place]'s disease, present on admission. Chronic, presumed stable. 6. Hypotension, present on admission. Resolved. 7. Chronic pain syndrome, present on admission. Chronic, presumed stable. 8. Anxiety/Depression, chronic, presume stable. 9. Hyperlipidemia, chronic, presume stable. Consultations GI - Dr. Rubi Procedures XRay, CTs & MRIs CT ABDOMEN AND PELVIS WITH CONTRAST IMPRESSION: 1. Significant appearance of colonic thickening as above with minimal scattered diverticula. Given diffuse appearance finding is most suspected to be related to colitis secondary to ischemia, infection or inflammation. Although diverticula are present, overall appearance does not appear consistent with diverticulitis. 2. Multiple hepatic cysts. 3. Prominent distal esophageal thickening a hiatal hernia. The former could be related to esophagitis and clinical correlation is recommended. Dictated by: Tana Montaño M.D. on 05/20/2016 at 8:37 Approved by: Tana Montaño M.D. on 05/20/2016 at 8:40 X-RAY CHEST ONE VIEW, PORTABLE IMPRESSION: Breast implants, peripherally faintly calcified, no acute disease. Dictated by: Skip Clement M.D. on 05/19/2016 at 21:08 Approved by: Skip Clement M.D. on 05/19/2016 at 21:08 ECG 12 Lead Rate 149 QTc 491 Sinus tachycardia Brief History Per Dr. Linton's H&P: Patient is a 61 year old female with a history of [place]'s disease, fibromyalgia, GERD and colon polyps. She presented to [facility] on 05/19/16 with "horrible" abdominal pain. It had been ongoing since 0300. She awakened at that time and went to use the restroom. She initially passed hard stool and then bloody diarrhea followed. She reports bright red blood and that continued much of the day (last BM 1600). Later in the morning she also developed dry heaves and vomiting. The emesis did contain blood in the afternoon with her last episode occurring in the ED waiting room. Currently her nausea has resolved but her abdominal pain remains. She denies fever but did have chills. She has not been feeling unwell the past few days and denies cough, nasal congestion, sore throat. She denies chest pain, SOB, dysuria, hematuria. She has not eaten since the evening of the . Today she reports chills and improving abdominal pain, now 5/10 down from 8. She describes her pain as suprapubic or RLQ. She reports nausea but no more diarrhea, vomiting, hematemesis, or hematochezia. She has had an episode to bloody diarrhea in the past. It was much less volume than this instance. Her last colonoscopy was 2-[address] Fuchs. She has a history of colon polyps and repeats her colonoscopy about every three years. She does not take Tylenol and rarely uses NSAIDs. No family history of colon cancer, Crohn's, UC, or celiac disease. In the ED the patient was afebrile with a heart rate of 153, respiratory rate of 20, blood pressure 91/55, and O2 saturation of 100% on room air. Labs we remarkable for WBC 16.9, Hgb 16.7, sodium 130, creatinine 1.61, lactic acid 3.6. CT abdomen/pelvis showed diffuse appearance of significant colonic thickening most severe in the distal transverse colon through the rectum, with prominent distal esophageal thickening and hiatal hernia Hospital Course Patient is a 61 year old female with a history of [place]'s disease, fibromyalgia, GERD and colon polyps. She presented to [facility] on 05/19/16 with "horrible" abdominal pain and bloody diarrhea. Admitted for sepsis and clostridium difficile. 1. Clostridium difficile, present on admission. Under treatment. - Metronidazole 500 mg PO Q8H started 05/20. - 3 episodes of diarrhea during admission. Patient stable. - CT abd/pelvis ordered revealed colonic thickening with minimal scattered diverticula but appearance is not consistent with diverticulitis. - Lactic acid initially elevated concerning for ischemic/infarcted bowel. Lactic acid normalized. - GI consulted. Appreciated time and expertise. 2. Possible GI bleeding, present on admission. Ruled out. - Patient reported one episode of bloody emesis at home and multiple episodes of bloody diarrhea. No recurrent episodes of hematemesis since admission. - Hemoglobin and hematocrit stable. - GI consulted. Appreciate time and expertise. 3. Severe sepsis, present on admission. Resolved. - Criteria met on admission: leukocytosis 16.9, tachycardia (153). Possible GI , urinary source. Lactic acid 3.6. - With fluid resuscitation patient quickly stabilized and no longer appear septic or meets criteria. - Rocephin and metronidazole started in ED. This was switched to metronidazole PO alone. - Lactic acid normalized. 4. Acute kidney injury, present on admission. Resolved. - Likely secondary to volume depletion related to diarrhea and vomiting. - On admission BUN and creatinine 23 and 1.61. - Baseline creatinine appears to be around 1.0. - 3L IV fluids initially bolused. Continued at IV NS 75 ml/hr. - BUN and creatinine improved during hospitalization. 5. [place]'s disease, present on admission. Chronic, presumed stable. - Stress dose of hydrocortisone 100 mg IV given in ED. - Continued hydrocortisone 20 mg QAM, 10 mg noon. 6. Hypotension, present on admission. Resolved. - Patient's baseline SBP 90s to 110's. - 3L given in ED. IV NS 75 ml/hr. - Stress dosing of hydrocortisone given as above. 7. Chronic pain syndrome, present on admission. Chronic, presumed stable. - Fibromyalgia, spinal compression fracture. - Holding PO meds including oxycodone. - Dilaudid 0.5 mg IV available Q4 PRN. 8. Anxiety/Depression, chronic, presume stable. - Patient takes Xanax HS PRN. - Continued Cymbalta 60 mg daily. 9. Hyperlipidemia, chronic, presume stable. - Continued Pravastatin 80 mg HS when patient tolerating PO intake. Exam Vital Signs (Last) Date Time Temp Pulse Resp B/P Pulse Ox O2 Delivery O2 Flow Rate FiO2 05/21/16 07:47 36.6 85 16 106/65 98 Room Air Exam General: No acute distress, well-developed, well-nourished, appropriately interactive. HEENT: Normocephalic, atraumatic. External ears without defect. Pupils equal, round, and reactive to light and accommodation. Anicteric sclerae, moist conjunctivae, and no lid lag. Dry mucus membranes. Neck: Supple with full range of motion. No jugular venous distension. No bruits. No lymphadenopathy or thyromegaly. Cardiovascular: Regular rate and rhythm with no murmurs, rubs, or gallops appreciated Pulmonary: Clear to auscultation bilaterally with no crackles, wheezes, or rhonchi. Normal respiratory effort with no use of accessory muscles. Abdomen: Bowel tones present. Soft, diffusely tender to palpation, nondistended. No hepatosplenomegaly or masses appreciated. Extremities: No clubbing, cyanosis, edema, or lymphadenopathy appreciated. Skin: Normal temperature, turgor, and texture; no rash, ulcers, or subcutaneous nodules appreciated. Neurological: Cranial nerves grossly intact. Normal muscle strength, tone, and bulk. Reflexes, coordination, and sensory function within normal limits. No known gait impairment. Psychiatric: Normal mood and affect. Alert and oriented to person, place, and time. Test 05/19/16 19:55 05/19/16 22:08 05/19/16 23:14 05/20/16 05:15 Prothrombin Time 10.7sec (8.1-12.5) Prothromb Time International Ratio 1.00ratio Total Bilirubin 0.7mg/dL (0.0-1.2) Aspartate Amino Transf (AST/SGOT) 29U/L (0-50) Alanine Aminotransferase (ALT/SGPT) 15U/L (0-32) Alkaline Phosphatase 67U/L (25-165) Total Protein 7.5g/dL (6.4-8.4) Albumin 4.2g/dL (3.4-5.0) Urine Color Yellow (YELLOW) Urine Appearance Clear (CLEAR,HAZY) Urine pH 5.5 (5.0-8.0) Urine Specific Enola 1.025 (1.003-1.035) Urine Protein Negativemg/dL (NEG,TRACE) Urine Glucose (UA) Negativemg/dL (NEGATIVE) Urine Ketones Tracemg/dL (NEGATIVE) Urine Occult Blood Trace (NEGATIVE) Urine Nitrite Negative (NEGATIVE) Urine Bilirubin Small (NEGATIVE) Urine Ictotest Negative (Negative) Urine Urobilinogen Normalmg/dL (NORMAL) Urine Leukocyte Esterase Negative (NEGATIVE) Urine RBC 3-10/hpf (0-2) Urine WBC 6-10/hpf (0-5) Urine Epithelial Cells Occasional/hpf (NONE-MOD) Urine Crystals None seen (NONE SEEN) Urine Bacteria Few/hpf (NONE-FEW) Urine Hyaline Casts None/lpf (NONE) Urine Granular Casts None seen (NONE SEEN) Urine Waxy Casts None seen (NONE SEEN) Urine Red Blood Cell Casts None seen (NONE SEEN) Urine White Blood Cell Casts None seen (NONE SEEN) Urine Mucus None seen (None Seen) Urine Trichomonas None seen (NONE SEEN) Urine Yeast None (NONE SEEN) Urinalysis Comment None Urine Culture Reflexed Indicated Hold Lyons Top Tube Received (Received) Hemoglobin A1c 6.0% (4.8-5.6) Phosphorus Level 4.6mg/dL (2.5-4.9) Magnesium Level 1.6mg/dL (1.6-2.6) Thyroid Stimulating Hormone (TSH) 1.300uIU/mL (0.450-4.500) Test 05/21/16 02:30 White Blood Count 8.2th/mm3 (3.8-10.1) Red Blood Count 3.42mil/mm3 (3.90-5.20) Hemoglobin 9.7g/dL (12.0-15.6) Hematocrit 29.3% (35.0-46.0) Mean Corpuscular Volume 85.7fL (81-100) Mean Corpuscular Hemoglobin 28.4pg (27.0-35.0) Mean Corpuscular Hemoglobin Concent 33.1% (32.0-37.0) Red Cell Distribution Width 13.1% (12.3-15.4) Platelet Count 231bil/L (150-400) Neutrophils (%) (Auto) 62.0% (40-74) Lymphocytes (%) (Auto) 26.1% (14-46) Monocytes (%) (Auto) 9.5% (4-12) Eosinophils (%) (Auto) 2.2% (0-5) Basophils (%) (Auto) 0.1% (0-3) Sodium Level 139mEq/L (134-144) Potassium Level 3.6mEq/L (3.5-5.2) Chloride Level 108mEq/L (97-108) Carbon Dioxide Level 21mmol/L (18-29) Blood Urea Nitrogen 12mg/dL (8-27) Creatinine 0.83mg/dL (0.57-1.00) Estimat Glomerular Filtration Rate 100mL/min (>59) Glucose Level 114mg/dL (60-99) Lactic Acid Level 0.7mmol/L (0.4-2.0) Calcium Level 8.0mg/dL (8.5-10.1) Discharge Medications Discharge Medications Calcium Carb/Vit D3/Minerals (Calcium 600+D & Mineral Chw Tb) 1 Each Tab.chew 1 EACH PO QID (Reported) Cholecalciferol-Expunged Drug, Do Not Renew! (Vitamin D3-Expunged Drug, Do Not Renew!) 10,000 Unit Capsule 5,000 UNIT PO DAILY (Reported) Duloxetine-Expunged Drug, Do Not Renew! (Cymbalta-Expunged Drug, Do Not Renew!) 60 Mg Capsule.dr 60 MG PO DAILY (Reported) Hydrocortisone-Expunged Drug, Do Not Renew! (Hydrocortisone-Expunged Drug, Do Not Renew!) 10 Mg Tablet 20 MG PO AM (Reported) Hydrocortisone-Expunged Drug, Do Not Renew! (Hydrocortisone-Expunged Drug, Do Not Renew!) 10 Mg Tablet 10 MG PO HS (Reported) Lansoprazole-Expunged Drug, Do Not Renew! (Lansoprazole-Expunged Drug, Do Not Renew!) 30 Mg Capsule.dr 60 MG PO DAILYAC (Reported) Metronidazole (Flagyl) 500 Mg Tablet 500 MG PO Q8 Prescribed by: JHONNY CONTRERAS, DO As needed ([Vicodin 5-500MG Tab]) 1 TAB PO Q8 PRN PRN (Reported) Alprazolam-Expunged Drug, Do Not Renew! (Alprazolam-Expunged Drug, Do Not Renew! ) 0.25 Mg Tablet 0.25 MG PO DAILY PRN PRN (Reported) For Anxiety Ondansetron (Ondansetron) 8 Mg Tab.rapdis 8 MG BU Q8 PRN PRN (Reported) DISSOLVE IN MOUTH OR UNDER TONGUE Additional med instructions During your hospitalization no changes to your home medication regimen were made. We did add an antibiotic called metronidazole (Flagyl) 500 mg every 8 hours for 14 days. Please continue taking this medication for an additional 13 days. It is important that you complete this course as the recurrence rate of clostridium difficile infection is high. Followup Plan Discharge Diet: No restrictions (Recommend sauerkraut) Discharge Activity: No restrictions Patient Instructions - During your hospitalization you were found to have an infection causing diarrhea called clostridium difficile. Antibiotics were started to treat this infection and need to be continued when you discharge to complete a 14 day course. - Recommend adding or increasing sauerkraut in your diet to help enhance normal gut bethany. - You may want to avoid dairy products as you can be mores sensitive to these after infection. - Please follow up with your primary care provider in 1 week. - Please follow up with GI, Dr. Rubi, in 4 weeks at this time you can discuss need for screening colonoscopy. Follow-up Provider: Jessica Romero MD Follow-up with PCP in: 1 week Provider: Brady Rubi MD Follow-up in: 4 weeks Time spent Greater than 30 minutes was spent in preparation of discharge with greater than 50% of that time dedicated to patient counseling and coordination of care. . Attending Statement The patient was seen and examined together with Dr. Contreras on 05/21/2016 and I agree with the history, exam and plan as outlined in the note above. . copies to: Jessica Romero MD, BETHANY A DO May 21, 2016 10:09 Jay Rosario MD May 24, 2016 14:30
--- NOTE | 2016-05-21 12:23 | NUR ---
Social Work Note: Discharge Data& Assessment: Per pt is medically improved and ready to discharge home via POV. SW met with pt at bedside to confirm discharge plan and assess for any unmet needs. Nichole Diggs is a 61 year old female admitted on 05/19/2016 for sepsis. Per pt is medically improved. Pt is independent in her room. Pt confirmed her will be transporting her home today at 1:00p.m. Pt denies any other needs. No other discharge needs identified. Plan: Per pt is medically improved and ready to discharge home via POV.Pt denies any other needs. No other discharge needs identified. [facility] [place]
--- NOTE | 2016-05-21 13:41 | NUR ---
Discharge Pt just discharged to home with family. Pt given discharge educational materials on C-diff, GI bleeds, and new prescription. Pt's IV access D/C'd and intact X2. Pt instructed to f/u with PCP in ~1 week, Pt reported that Dr. Romero's office had already contacted her about appointment. Pt instructed to f/u with Dr. Rubi, appointment as listed in discharge paperwork. Pt verbalized understanding of all discharge instructions. All belongings accompanied Pt at time of discharge.
[2016-08-01] MEDS ORDERED: LANS30CA PO (14:59)
[2016-08-01] MEDS ORDERED: PRAV80TA2 PO (14:59)
[2016-08-01] MEDS ORDERED: PRAM0.122 PO (14:59)
[2016-08-01] MEDS ORDERED: METO25TA99 PO (14:59)
[2016-08-01] MEDS ORDERED: HYDR10TA12 PO (14:59)
[2016-08-01] MEDS ORDERED: CALC-83 PO (14:59)
[2016-08-01] MEDS ORDERED: ALPR0.254 PO (14:59)
[2016-08-01] MEDS ORDERED: DULO60CA61 PO (14:59)
[2016-08-01] MEDS ORDERED: ONDA-54 PO (14:59)
[2016-08-01] MEDS ORDERED: HYDR-4003 PO (14:59)
== END 2016-05-21 13:15 | disposition home or self-care (01) | DRG 872 ==
LOC: SED 19:38 → PCC 23:55
PROVIDERS: ADMIT Hospitalist; ATTEND Hospitalist
DX: A41.9 Sepsis, unspecified organism (principal); E27.1 Primary adrenocortical insufficiency; N17.9 Acute kidney failure, unspecified; Z86.010 Personal history of colon polyps; R65.20 Severe sepsis without septic shock; E86.9 Volume depletion, unspecified; I95.9 Hypotension, unspecified; G89.4 Chronic pain syndrome; F41.9 Anxiety disorder, unspecified; F32.9 Major depressive disorder, single episode, unspecified; E78.5 Hyperlipidemia, unspecified; Z66 Do not resuscitate; B96.89 Other specified bacterial agents as the cause of diseases classified elsewhere

== ENCOUNTER 2016-08-04 07:16 | Day surgery (SDC) | payer OTHER ==
[~2016-08-04] VITALS: Ht 162.6 cm; Wt 105.0 kg
[~2016-08-04 07:16] MED LIST changes: +ALPR0.254 PO; +CALC-83 PO; -CITA40TA PO; +DULO60CA61 PO; -EST05TD TOP; +HYDR-4003 PO; +LANS30CA PO; -LEVO50TA83 PO; +METO25TA99 PO; +METR500T PO; +ONDA-54 PO; +PRAM0.122 PO; +PRAV80TA2 PO; -[UNRECOGNIZED DRUG - OTHER] INJ
[2016-08-04] MEDS ORDERED: fentaNYL-PF 50 mCg/mL 2 mL Inj IVPUSH PRN (07:45)
[2016-08-04] MEDS ORDERED: Sodium Chloride LOK Flush 10 mL Syringe IV PRN (07:45)
[2016-08-04] MEDS ORDERED: 0.9% Sodium Chloride 1,000 ML IV PRN (07:45)
[2016-08-04 07:49] VITALS: BP 132/62; PULSE 94; RESP 14; O2SAT 98
[2016-08-04] MEDS ORDERED: DIPH25CA6 PO (07:54)
--- NOTE | 2016-08-04 08:20 | PCM.ENDEGD ---
EGD Date of Service: Aug 04, 2016 Physician Brady Rubi MD Indication for Procedure Abnormal CT of the GE junction and early satiety Post Procedure Dx & Findings: Some scarring at the GE junction and gastritis and fundic polyp. Procedure Esophagogastroduodenoscopy PROCEDURE IN DETAIL: After proper sedation, Olympus video endoscope was inserted into patient's mouth and esophagus was successfully intubated. Scope introduced esophagus. Esophagus showed normal shiny whitish mucosa consistent with squamous cell component. Z line was slightly irregular at 40 cm from the incisors. Also at the GE junction some scarring noted. The Z line and the scarring were biopsied. The scope further advanced to the stomach. Stomach showed normal shiny mucosa with normal appearing rugae folds without any ulcer mass erosion. However in the antrum, there was edema and redness consistent with gastritis. This was biopsied. Cardia fundus body antrum pylorus were all visualized. The proximal body fundus and cardia showed 3 mm to 1 cm fundic polyps. Sampling biopsies obtained especially in the larger polyps. Retroflexion was done. Stomach was easily inflated and deflatable using air. Scope further events to the distal duodenum. Duodenum revealed normal villous structures with normal appearing folds without any mass ulcer erosion. Impression Esophagitis with some scarring status post biopsy Fundic polyps status post biopsy Gastritis status post biopsy Recommendation Continue PPI Presedation Assessment Risks and Benefits Informed consent was obtained from the patient after all risks and benefits including but not limited to drug reaction, infection, pain, bleeding, perforation, as well as alternatives were discussed. Patient monitoring Continuous pulse oximetry, cardiac monitoring, blood pressure monitoring, IV access, and oxygen at 2L per nasal cannula. Periprocedural Fentanyl: Fentanyl 100mcg Incrementally Midazolam: Midazolam 5mg Incrementally Complications There were no periprocedural complications identified. Post Procedure Plan Post Procedure Recommendations 1. Restrict activities today. 2. Resume normal activities in the morning. 3. Resume medications. 4. GERD behavioral modification: - Avoid fatty, acidic, spicy, large meals - Do not lie down after meals - Do not eat or drink anything for at least 2 1/2 hours before going to bed at night - Discontinue tobacco and alcohol - Decrease or avoid caffeine - Avoid chocolate and mints - Decrease weight - Avoid aspirin and non steroidal anti-inflammatory agents (NSAID) such as Aleve, Advil, Mobic, Naproxen, Ibuprofen, etc 5. Add proton pump inhibitor. Take 30 minutes before 1st meal of the day. 6. Patient informed of normal post procedure side effects as bloating, drowsiness, blood streaking in the stool 7. If gastric biopsy reveal H.pylori, continue with appropriate treatment 8. If small bowel biopsy reveals celiac, continue with appropriate treatment 9. Please don't hesitate to call me with any questions Brady Rubi MD Aug 04, 2016 08:20
--- NOTE | 2016-08-04 08:44 | PCM.ENDCOL ---
Colonoscopy Physician Brady Rubi MD Pre Procedure Diagnosis: Blood in the stools worsening constipation Post Procedure Dx & Findings: Polyp hemorrhoids diverticuli Procedure Colonoscopy PROCEDURE IN DETAIL: Prep adequate Withdrawal time 11 minutes After unremarkable rectal examination the Olympus video colonoscope was inserted patient's anal canal and was advanced to cecum. Landmarks were identified including the ileocecal valve and appendiceal orifice. Scope was withdrawn systematically. Visualized colonic mucosa showed healthy shiny mucosa with normal healthy-appearing vasculature. In the ascending colon there was a 1 mm polyp which was removed completely using cold forceps. In the transverse colon there was a 5 mm polyp was removed completely using cold snare. In the descending colon there was a 1 mm polyp which was removed completely using cold forceps. In the sigmoid colon there are few small diverticuli. In the rectum retroflexion was done which showed hemorrhoids. Anal canal was inspected carefully on the way out and hemorrhoids noted. Impression Polyps 3 status post complete removal Personal history of colon polyps Diverticuli Hemorrhoids Recommendation Repeat colonoscopy 3 years Diverticular diet Noted the patient was not taking anything for her constipation. MiraLAX over- the-counter one to twice a day and Metamucil. If this does not resolve the problem follow up in GI clinic to consider Movantik. Presedation Assessment Risks and Benefits Informed consent was obtained from the patient after all risks and benefits including but not limited to drug reaction, infection, pain, bleeding, perforation, as well as alternatives were discussed. Patient monitoring Continuous pulse oximetry, cardiac monitoring, blood pressure monitoring, IV access, and oxygen at 2L per nasal cannula. Periprocedural Fentanyl: Fentanyl 50mcg Incrementally Midazolam: Midazolam 1mg Incrementally Complications There were no periprocedural complications identified. Post Procedure Plan Post Procedure Recommendations 1. Restrict activities today. 2. Resume normal activities in the morning. 3. Resume medications. 4. Patient informed of normal post procedure side effects as bloating, drowsiness, blood streaking in the stool. 5. average risk CRCS. If colon polyps come back as: -Hyperplastic- can repeat colonoscopy in 10 years -Tubular adenoma- repeat colonoscopy in 5 years -Tubulovillous/villous adenoma- repeat colonoscopy in 3 years -If any dysplasia- return to clinic as soon as possible 6. Please don't hesitate to call me with any questions. Brday Rubi MD Aug 04, 2016 08:44
[2016-08-04 08:47] VITALS: BP 104/70; PULSE 96; RESP 15; O2SAT 98
[2016-08-04 08:54] VITALS: BP 96/62; PULSE 94; RESP 15; O2SAT 97
[2016-08-04 09:04] VITALS: BP 100/65; PULSE 93; RESP 15; O2SAT 98
[2016-08-04 09:13] VITALS: BP 92/62; PULSE 100; RESP 15; O2SAT 99
[2016-08-04 09:23] VITALS: BP 112/60; PULSE 89; O2SAT 100
--- NOTE | 2016-08-05 10:53 | PATH ---
SURGICAL PATHOLOGY Attending Physician:Brady Rubi M.D. CASE STATUS: Signed Out PATIENT NAME: FRANDY OSULLIVAN PID: [id number] : 1955 DATE COLLECTED:08/04/2016 17:53 SPECIMEN: 1: Gastric, Biopsy 2: Stomach, Polyp, Biopsy 3: Esophagus, Biopsy 4: Colon, Biopsy 5: Colon, Biopsy 6: Colon, Biopsy CLINICAL HISTORY: 1). GASTRIC BIOPSY 2). FUNDIC POLYPS BIOPSY 3). GASTRO-ESOPHAGEAL JUNCTION BIOPSY (SCARRING) 4). ASCENDING POLYP 5). TRANSVERSE POLYP 6). DESCENDING POLYP FINAL DIAGNOSIS: 1. Gastric Biopsy: Mild chronic gastritis involving antral mucosa. Negative for evidence of Helicobacter. Negative for intestinal metaplasia. Negative for dysplasia and malignancy. 2. Fundic Polyps, Biopsy: Benign fundic gland polyp, negative for atypia. Negative for evidence of Helicobacter. Negative for intestinal metaplasia. 3. Gastroesophageal Junction Biopsy: Squamous mucosa and gastric cardia-type mucosa negative for specialized metaplasia of Kim's type esophagus. Negative for dysplasia and malignancy. Eosinophils present within squamous epithelium numbering as many as 10 per high-power field, consistent with changes of chronic reflux (see comment). 4. Ascending Colon Polyp: Tubular adenoma. 5. Transverse Colon Polyp: Tubular adenoma involving multiple biopsy fragments. 6. Descending Colon Polyp: Changes consistent with hyperplastic polyp. ICD10: K31.7 NOTE: The eosinophils present within the squamous epithelium in part 3, even though numbering 10 per high-power field, are still consistent with changes resulting from chronic reflux. The possibility of eosinophilic esophagitis should, however, be considered, and clinical correlation is suggested. GROSS DESCRIPTION: The specimen is received in six formalin filled containers labeled with the patient's name. 1). The specimen is sublabeled "gastric" and consists of 2 portions of tissue which aggregate to 0.2 x 0.2 x 0.2 CM. The specimen is entirely submitted in cassette 1A. 2). The specimen is sublabeled "fundic polyps" and consists of 2 portions of tissue which aggregate to 0.2 x 0.2 x 0.2 CM. The specimen is entirely submitted in cassette 2A. 3). The specimen is sublabeled "GEJ" and consists of 2 portions of tissue which aggregate to 0.3 x 0.3 x 0.2 CM. The specimen is entirely submitted in cassette 3A. 4). The specimen is sublabeled "ascending polyp" and consists of a 0.3 x 0.2 x 0.2 CM portion of tissue which is entirely submitted in cassette 4A. 5). The specimen is sublabeled "transverse polyp" and consists of multiple portions of tissue which aggregate to 0.5 x 0.5 x 0.3 CM. The specimen is entirely submitted in cassette 5A. 6). The specimen is sublabeled "descending polyp" and consists of a 0.3 x 0.3 x 0.2 CM portion of tissue which is entirely submitted in cassette 6A. 08/04/2016 [facility] ICD-9 CODES: CPT CODES: 1: 61298 2: 94947 3: 66159 4: 63260 5: 60718 6: 23800 Electronically Signed Out Paul Escobar MD [facility] Pathology [facility] [address] [place] [address], [place] [address] Technical component performed at [facility], [facility] [address], [place], [address]
== END 2016-08-04 23:59 | disposition home or self-care (01) ==
LOC: END 07:16
PROVIDERS: ATTEND Internal Medicine
DX: D12.2 Benign neoplasm of ascending colon (principal); D12.3 Benign neoplasm of transverse colon; K57.30 Diverticulosis of large intestine without perforation or abscess without bleeding; K64.8 Other hemorrhoids; Z86.010 Personal history of colon polyps; K29.50 Unspecified chronic gastritis without bleeding; K31.7 Polyp of stomach and duodenum; K21.9 Gastro-esophageal reflux disease without esophagitis; K20.9 Esophagitis, unspecified; G47.00 Insomnia, unspecified; E03.9 Hypothyroidism, unspecified; G25.81 Restless legs syndrome; E78.5 Hyperlipidemia, unspecified; F32.9 Major depressive disorder, single episode, unspecified; F41.9 Anxiety disorder, unspecified; E27.1 Primary adrenocortical insufficiency; M81.0 Age-related osteoporosis without current pathological fracture